=== PATIENT | female | born 2000 | race Caucasian/White ===

== ENCOUNTER 2018-11-08 14:13 | Emergency (ER) | payer OTHER ==
--- NOTE | 2018-11-08 14:16 | PDOC ---
Rapid Medical Evaluation Time Seen by Provider: 11/08/18 14:15 Medical Evaluation: 11/08/18 14:15 I have performed a brief in-person evaluation of this patient. The patient presents with a chief complaint of:, ~6 weeks , here w/ cramping this am. No vag bleed, dysuria, n/v. No care/US this Pertinent physical exam findings:stable and well henry I have ordered the following:labs/ua/US The patient will proceed to the ED for further evaluation. Discharge Disposition - Diagnosis Abdominal pain affecting - Referrals - Patient Instructions - Post Discharge Activity
[2018-11-08 14:21] VITALS: BP 116/61; PULSE 74; TEMP 97.9; BMI 41.3
--- NOTE | 2018-11-08 16:20 | PDOC ---
History of Present Illness - General Chief Complaint: Pain, Acute Stated Complaint: 6WKS,ABD PAIN Time Seen by Provider: 11/08/18 14:15 History Source: Patient Exam Limitations: No Limitations Past History - Past Medical History Allergies/Adverse Reactions: Allergies Allergy/AdvReac Type Severity Reaction Status Date / Time No Known Allergies Allergy Verified 11/08/18 14:17 Home Medications: Ambulatory Orders Ityrqn87/Iron Fum,Ps/Folic/Dha [Provida Dha Capsule] 1 each PO DAILY 11/08/18 COPD: No - Suicide/Smoking/Psychosocial Hx Smoking History: Never smoked *Physical Exam - Vital Signs Last Vital Signs Temp Pulse Resp BP Pulse Ox 97.9 F 74 18 116/61 100 11/08/18 14:19 11/08/18 14:19 11/08/18 14:19 11/08/18 14:19 11/08/18 14:19 - Physical Exam General Appearance: No: Apparent Distress Respiratory/Chest: positive: Lungs Clear, Normal Breath Sounds. negative: Respiratory Distress Cardiovascular: positive: Regular Rhythm, Regular Rate, S1, S2. negative: Murmur Female Pelvic Exam: positive: other (patient refused pelvic exam) Gastrointestinal/Abdominal: positive: Normal Bowel Sounds, Soft. negative: Tender, Distended, Guarding, Rebound Integumentary: positive: Normal Color Neurologic: positive: Alert Moderate Sedation - Procedure Monitoring Vital Signs: Procedure Monitoring Vital Signs Temperature 97.9 F 11/08/18 14:19 Pulse Rate 74 11/08/18 14:19 Respiratory Rate 18 11/08/18 14:19 Blood Pressure 116/61 11/08/18 14:19 O2 Sat by Pulse Oximetry (%) 100 11/08/18 14:19 ED Treatment Course - ADDITIONAL ORDERS Additional order review: Laboratory Results 11/08/18 11/08/18 14:34 14:34 Beta HCG, Quant < 1.0 Blood Type A POSITIVE Antibody Screen Negative Medical Decision Making - Medical Decision Making 18 y/o F with no sig pmh presents with lower abdominal cramping from today. LNMP was sometime in Sep 2018; has irregular periods. Mentions with hospital around 1.5 weeks ago and was told she was 6 weeks (no imaging was done ; states they only took urine from her). Has appointment with her brass sorter tomorrow. Has occasional NBNB emesis in the morning. Denies fever, chills, sob, cp, diarrhea, urinary complaints, vaginal bleeding Ultrasound raises concern for possible early IUP Patient had refused transvaginal ultrasound and pelvic exam here stating she was not comfortable having this done in the ED Labs show negative Bhcg UA, UCG were sent and still pending Unsure of possible negative Bhcg was lab error, but patient refused more blood work and refused to wait for urine results Patient left AMA - she has capacity to make her decisions and understands risks of not getting complete workup 11/08/18 16:14 *DC/Admit/Observation/Transfer Diagnosis at time of Disposition: Abdominal pain affecting - Discharge Dispostion Disposition: AGAINST MEDICAL ADVICE Condition at time of disposition: Stable Decision to Admit order: No - Referrals Referrals: ON STAFF,NOT [Primary Care Provider] - - Patient Instructions Printed Discharge Instructions: DI for Abdominal Pain-Adult Additional Instructions: Thank you for choosing [facility]. It was a pleasure taking care of you. You imaging indicated possible early but difficult to tell without transvaginal ultrasound We wanted to repeat your blood work in case of possible error, but you had refused A possible missed diagnosis is ectopic , which is a growing in the wrong location. Missing this can result in Follow-up with your brass sorter tomorrow. Return to the Emergency Department if your symptoms worsen or persist or have other concerning symptoms. - Post Discharge Activity
[2018-11-09 12:45] LABS: ALBUMIN 3.9 g/dl (3.4-5.0); ALK PHOS 94 U/L (45-117); ANION GAP 8 MMOL/L (8-16); BILIRUBIN,TOTAL 0.5 mg/dL (0.2-1); BLOOD UREA NITROGEN 14 mg/dL (7-18); CALCIUM 9.8 mg/dL (8.5-10.1); CHLORIDE 102 mmol/L (98-107); CO2 28 mmol/L (21-32); CREATININE 0.6 mg/dL (0.55-1.3); GLUCOSE,RANDOM 84 mg/dL (74-106); POTASSIUM 4.1 mmol/L (3.5-5.1); SGOT/AST 19 U/L (15-37); SGPT/ALT 28 U/L (13-61); SODIUM 137 mmol/L (136-145); TOT PROT 7.8 g/dl (6.4-8.2)
== END 2018-11-08 16:40 | disposition left against medical advice (07) ==
LOC: JER 14:13
DX: O26.891 Other specified pregnancy related conditions, first trimester (principal); R10.30 Lower abdominal pain, unspecified; Z3A.01 Less than 8 weeks gestation of pregnancy
CPT/HCPCS: 36415; 76817-TC; 80053; 84702; 86850; 86900; 86901; 99282-25